=== PATIENT | female | born 1955 | race Caucasian/White ===

== ENCOUNTER 2017-09-30 14:07 | Outpatient (CLI) | payer OTHER | END 2017-09-30 14:08 | disposition home or self-care (01) | LOC: BICRAD 14:07 | PROVIDERS: ATTEND Internal Medicine | DX: M79.671 Pain in right foot (principal); M79.672 Pain in left foot; M19.072 Primary osteoarthritis, left ankle and foot ==

== ENCOUNTER 2018-03-14 07:58 | Outpatient (CLI) | payer OTHER | END 2018-03-14 07:59 | disposition home or self-care (01) | LOC: BICMAMMO 07:58 → MERGE 08:45 | PROVIDERS: ATTEND Internal Medicine | DX: Z12.31 Encounter for screening mammogram for malignant neoplasm of breast (principal); N64.89 Other specified disorders of breast; Z85.3 Personal history of malignant neoplasm of breast | CPT/HCPCS: 77063; 77067 ==

== ENCOUNTER 2018-04-04 08:29 | Outpatient (CLI) | payer OTHER ==
--- NOTE | 2018-04-04 10:09 | ULT ---
RIGHT BREAST ULTRASOUND: Date: 04/04/18 HISTORY: Abnormal mammogram of 03/14/18. FINDINGS: Correlation is made with the recent mammographic views of same date. Sonographic evaluation of the right breast demonstrates a 7.0 x 5.0 x 5.0 mm slightly irregular, carmelita d appearing, nonshadowing mass at the 2 o'clock position, 1.0 cm from the nipple, corresponding to th e finding on the mammogram. IMPRESSION: BIRADS Category 4 - Suspicious abnormality. Recommend ultrasound guided biopsy. Discussed in person with the patient at 0900 hours. CODE CR. POS: OFF
== END 2018-04-04 08:30 | disposition home or self-care (01) ==
LOC: BICMAMMO 08:29
PROVIDERS: ATTEND Internal Medicine
DX: R92.2 Inconclusive mammogram (principal); Z85.3 Personal history of malignant neoplasm of breast
CPT/HCPCS: G0279

== ENCOUNTER → 2018-04-06 | Day surgery (SDC) | payer OTHER ==
--- NOTE | 2018-04-06 16:57 | ULT ---
PREPROCEDURE DIAGNOSIS: Right breast 2 o'clock subareolar mass. POSTPROCEDURE DIAGNOSIS: Right breast 2 o'clock subareolar mass. PROCEDURE: Ultrasound guided core biopsy of right breast mass. PATIENT ACCOUNTS COORDINATOR: El Howard M.D. COMPARISON: None. ANESTHESIA: 10 mL buffered 1% lidocaine. SPECIMEN: Five 14 gauge core biopsy specimens of right breast 2 o'clock mass. TECHNIQUE: Prior to the procedure, the risks, and benefits of an ultrasound guided right breast mass biopsy were explained with the patient and she consented for the procedure. The lesion in the left subareolar re gion of the right breast was again identified slightly towards the 2 o'clock position. The right joce st was then prepped and draped in the usual sterile fashion. The approach from lateral was performed. Lidocaine was used to anesthetize the skin and soft tissues down to and surrounding the mass. A smal l skin incision was made allowing for passage of the 13 gauge guiding trocar. This was then placed us ing ultrasound guidance into the region of the mass. A 14 gauge biopsy device was then placed five separate times through the guiding trocar and five sepa rate biopsies were obtained of the right breast mass. These specimens were placed in formalin. A biopsy clip has been placed at the biopsy site. The guiding trocar and biopsy clip device were mary salena. Pressure was held to maintain hemostasis. A postprocedure mammogram was performed showing a biopsy clip at the biopsy site in the subareolar re gion with a small amount of post biopsy hematoma. The asymmetry seen on mammogram could not be apprec iated postprocedure given the small amount of hematoma and given the small size of the lesion. IMPRESSION: Status post ultrasound guided right breast biopsy. POS: [facility]
== END ==
LOC: BICULT 13:19
PROVIDERS: ATTEND Internal Medicine
PROC: 0HBT3ZX Excision of Right Breast, Percutaneous Approach, Diagnostic (ICD-10-PCS; principal; 2018-04-06)
DX: C50.211 Malignant neoplasm of upper-inner quadrant of right female breast (principal)
CPT/HCPCS: 19083; 88305; 88341; 88342

== ENCOUNTER 2018-04-28 09:13 | Outpatient (CLI) | payer OTHER ==
--- NOTE | 2018-04-28 11:04 | RAD ---
TWO VIEWS CHEST: Comparison: None. History: Preoperative radiograph. FINDINGS: Two views of the chest show normal sized cardiomediastinal silhouette. There is no evidence of consol idation, mass, or pleural effusion. Degenerative changes are seen in the spine. IMPRESSION: No evidence of acute cardiopulmonary disease. POS: [facility]
[2018-04-28 11:06] LABS: ALT (SGPT) 63 U/L (8-55); AST (SGOT) 38 U/L (5-34); Albumin 4.1 g/dL (3.5-5.0); Alkaline Phosphatase 87 U/L (40-150); Bilirubin, Direct 0.1 mg/dL (0.1-0.3); Bilirubin, Total 0.3 mg/dL (0.2-1.2); Protein, Total 7.4 g/dL (6.0-8.3)
--- NOTE | 2018-04-28 17:09 | EKG ---
Test Reason : Blood Pressure : / mmHG Vent. Rate : 081 BPM Atrial Rate : 081 BPM P-R Int : 162 ms QRS Dur : 098 ms QT Int : 380 ms P-R-T Axes : 051 055 059 degrees QTc Int : 441 ms Normal sinus rhythm Cannot rule out Anterior infarct , age undetermined Abnormal ECG No previous ECGs available Confirmed by DR. Brooks MARY (3) on 04/28/2018 5:08:42 PM Referred By: NICKO Confirmed By:DR. Brooks MARY
== END 2018-04-28 09:14 | disposition home or self-care (01) ==
LOC: LABBT 09:13
PROVIDERS: ATTEND Surgery
DX: Z01.818 Encounter for other preprocedural examination (principal); C50.911 Malignant neoplasm of unspecified site of right female breast
CPT/HCPCS: 71046; 80076; 93005; 93010

== ENCOUNTER 2018-05-11 07:22 | Inpatient (IN) | payer OTHER ==
[2018-04-28 09:18] VITALS: BMI 35.7
[2018-05-11] MEDS ORDERED: Isosulfan Blue 50 MG/5 ML VIAL ONE (09:01)
[2018-05-11] MEDS ORDERED: Bupivacaine HCl 0.25%/Epi 0.0005/PF 10 ML VIAL FS ONE ×2 (09:01)
[2018-05-11] MEDS ORDERED: Bupivacaine HCl 0.5%/Epinephrine 1:200,000/PF 30 ml Vial ONE ×2 (09:01→19:31)
[2018-05-11] MEDS ORDERED: Fentanyl 250 MCG/5 ML VIAL ONE (09:05)
[2018-05-11] MEDS ORDERED: Midazolam HCl 2 mg/2 ml Vial ONE (09:31)
[2018-05-11] MEDS ORDERED: Famotidine/PF 20 mg/2ml Vial ONE (09:32)
[2018-05-11] MEDS ORDERED: Ketorolac Tromethamine 30 MG/ML VIAL ONE (09:32)
[2018-05-11] MEDS ORDERED: CEFAZOLIN 2 GM/50 ML BAG ONE ×2 (09:33→19:43)
--- NOTE | 2018-05-11 10:37 | NM ---
RIGHT BREAST LYMPHOSCINTIGRAPHY: HISTORY: Invasive ductal carcinoma of the right breast. RADIOPHARMACEUTICAL: Technetium 99m filtered sulfur colloid 427 millicuries, injected in the right periareolar region, in divided doses. FINDINGS: Preliminary measuring of the head, chest, and axillae was performed. There is visualization of lymph nodes in the right axilla and in the right internal mammary chains. IMPRESSION: [place] lymph nodes in the right axilla and internal mammary lymph nodes. POS: [facility]
[2018-05-11] MEDS ORDERED: HYDROcodone/Acetaminophen 10/325 mg Tablet PO PRN (12:38)
[2018-05-11] MEDS ORDERED: Dextrose 50% Abboject 50 ML SYRINGE SLOW IVP PRN (12:38)
[2018-05-11] MEDS ORDERED: Dextrose 5% in Water 1,000 ML IV PRN (12:38)
[2018-05-11] MEDS ORDERED: Morphine 4 MG/ML VIAL SLOW IVP PRN (12:38)
[2018-05-11] MEDS ORDERED: Promethazine HCl 25 MG/ML VIAL IM PRN ×2 (12:38→21:48)
[2018-05-11] MEDS ORDERED: hydrALAZINE 20 MG/ML VIAL SLOW IVP PRN (12:38)
[2018-05-11] MEDS ORDERED: D5 1/2 NS w/20 mEq KCL 1,000 ML IV SCH (12:45)
[2018-05-11] MEDS ORDERED: PHENYLEPHRINE-NS 100 MCG/ML 10 ML SYRINGE ONE ×2 (12:55→12:56)
[2018-05-11] MEDS ORDERED: Glycopyrrolate 0.2 MG/ML 5 ML SYRINGE ONE ×2 (12:55→12:56)
[2018-05-11] MEDS ORDERED: Dexamethasone 20 MG/5 ML VIAL ONE (12:55)
[2018-05-11] MEDS ORDERED: Ondansetron PF 4 MG/2 ML Vial ONE ×3 (12:55→22:53)
[2018-05-11] MEDS ORDERED: PROPOFOL 200 MG/20 ML VIAL ONE ×2 (12:55→12:56)
[2018-05-11] MEDS ORDERED: Rocuronium Bromide 10 MG/ML (10ML VIAL) ONE (12:55)
[2018-05-11] MEDS ORDERED: Lidocaine 1% PF 5 ML VIAL ONE ×2 (12:55→12:56)
[2018-05-11] MEDS ORDERED: Succinylcholine Chloride 20 MG/ML 10 ml SYRINGE FS ONE (12:56)
[2018-05-11] MEDS ORDERED: Fentanyl 100 MCG/2 ML VIAL ONE ×2 (13:50→19:21)
[2018-05-11] MEDS ORDERED: Promethazine HCl 25 MG/ML VIAL ONE (13:50)
--- NOTE | 2018-05-11 14:24 | RAD ---
MEDIPORT PLACEMENT: COMPARISON: Chest radiograph from 04/28/2018. FINDINGS: The port catheter is in place with the tip at the mid to inferior SVC. The lungs are well aerated. No pneumothorax is appreciated. The lungs are mildly hypoinflated. IMPRESSION: Uncomplicated placement of port catheter. POS: [facility]
[2018-05-11 17:01] LABS: Hemoglobin 12.6 g/dL (12.0-16.0)
[2018-05-11] MEDS ORDERED: Lidocaine 2% Jelly 5 ML TUBE ONE (19:21)
[2018-05-11] MEDS: Sodium Chloride 0.9% 1,000 ML IV SCH ×3 (19:51→22:29)
[2018-05-11] MEDS ORDERED: Phenylephrine HCL 10 MG/ML VIAL ONE (20:27)
[2018-05-11] MEDS ORDERED: Famotidine 20 MG TAB PO SCH (21:00)
[2018-05-11] MEDS ORDERED: Promethazine HCl 25 MG/ML VIAL SLOW IVP PRN (21:48)
[2018-05-11] MEDS ORDERED: Ondansetron HCl/PF 4 MG/2 ML Vial IVP PRN (21:48)
[2018-05-11 22:06] LABS: Hemoglobin 10.8 g/dL (12.0-16.0)
[2018-05-11] MEDS ORDERED: Albumin 25% 25 GM/100 ML BOT IVPB PRN (22:17)
[2018-05-11] MEDS ORDERED: Albumin 25% 25 GM/100 ML BOT IVPB SCH (22:30)
[2018-05-12] MEDS: Acetaminophen 325 MG TAB PO PRN (00:45)
[2018-05-12] MEDS: Sodium Chloride 0.9% 1,000 ML IV SCH ×4 (00:47→20:21)
[2018-05-12] MEDS ORDERED: Famotidine 20 MG TAB PO SCH (02:45)
--- NOTE | 2018-05-12 03:25 | OP ---
DATE OF PROCEDURE: 05/11/2018 PREOPERATIVE DIAGNOSIS: Postoperative bleeding. PROCEDURE PERFORMED: Wound exploration, evacuation of hematoma and hemostasis. INDICATIONS: This is a 62-year-old female, who earlier today had a right total mastectomy with axillary dissection. Postoperatively, she had excessive bloody drainage from the JAZMIN, became hypotensive, and was taken back. FINDINGS: Probably about 1200 total mL including the drainage that had come out plus the hematoma, there were multiple areas of muscle oozing. DESCRIPTION OF PROCEDURE: After informed consent was obtained, the patient was taken to the operating room, given general endotracheal anesthesia, placed in supine position. Her chest was prepped and draped in the usual fashion. The old incision was opened using scissors and the clot evacuated. There was not one specific spot. Though the cavity was thoroughly irrigated with saline, there were multiple small bleeders, which were cauterized. There was one potential vessel and that was ligated with 3-0 Vicryl [id number], just continued to carefully irrigate and cauterize, and then eventually I used 3 Cole powders to completely cover the surface with the Cole powder to aid in hemostasis. Then, two new 19-[place] JPs were placed, brought out through the same stab wounds. The subcu was reapproximated with interrupted 3-0 Vicryl. Then, the skin closed with a running subcuticular 4-0 Rapide. Steri-Strips applied. Sterile bandage applied. The patient tolerated the procedure well, but remained somewhat hypotensive with a pressure in the low 100s. Job ID: [id number]
[2018-05-12 05:19] LABS: #Lymphocytes 2.1 thou/uL (1.20-3.40); #Monocytes 0.9 thou/uL (0.11-0.59); #Neutrophils 6.9 thou/uL (1.40-6.50); %Basophils 0.1 % (0.0-1.0); %Eosinophils 0.3 % (0.0-10.0); %Monocytes 9.1 % (0.0-10.0); %Neutrophils 69.4 % (42.0-75.0); Hemoglobin 8.1 g/dL (12.0-16.0); Mean Corpuscular HGB CONC 34.1 g/dL (32.0-36.0); Mean Corpuscular Hemoglobin 30.8 pg (27.0-31.0); Mean Corpuscular Volume 90.5 fL (78.0-98.0); Mean Platelet Volume 7.9 fL (7.4-10.4); Platelet Count 140 thou/uL (130-400); RBC Distribution Width 11.8 % (11.5-14.5); Red Blood Cell (RBC) Count 2.63 mill/uL (4.20-5.40); White Blood Cell (WBC) Count 9.9 thou/uL (4.8-10.8)
[2018-05-12 06:05] LABS: Anion Gap 12 mmol/L (10-20); BUN (Urea Nitrogen) 11 mg/dL (9.8-20.1); Calc. Creatinine Clearance 140 mL/min (70-130); Calcium 8.2 mg/dL (7.8-10.44); Carbon Dioxide 23 mmol/L (22-29); Chloride 107 mmol/L (98-107); Estimated GFR-MDRD Greater than 90; Glucose 122 mg/dL (70-105); Potassium 4.2 mmol/L (3.5-5.1); Sodium 138 mmol/L (136-145)
[2018-05-12] MEDS ORDERED: Mag-Al 1200 mg/1200 mg/30 ML UDCUP PO PRN (06:51)
[2018-05-12] MEDS: Pantoprazole 40 MG VIAL IVP SCH (07:56)
[2018-05-12] MEDS: HYDROcodone/Acetaminophen 10/325 mg Tablet PO PRN ×4 (07:56→22:15)
[2018-05-12] MEDS: Famotidine 20 MG TAB PO SCH ×2 (07:56→20:20)
--- NOTE | 2018-05-12 08:53 | OP ---
DATE OF PROCEDURE: 05/11/2018 PREOPERATIVE DIAGNOSIS: Recurrent right breast cancer. PROCEDURES PERFORMED: MediPort placement, right total mastectomy, sentinel lymph node biopsy, and axillary dissection. INDICATIONS: This is a 62-year-old female, who had had a previous right breast cancer treated with lumpectomy and radiation therapy, who developed a second cancer. FINDINGS: The MediPort was placed in the left subclavian vein. Two of three sentinel nodes were positive. There were more palpable nodes in the axilla. DESCRIPTION OF PROCEDURE: After informed consent was obtained, the patient was taken to the operating room and given general endotracheal anesthesia, placed in the Trendelenburg position. Her chest and neck were prepped and draped in usual fashion, local anesthesia infiltrated subcutaneously and deep, an introducer needle was inserted in left subclavian with good backflow of venous blood. A J-wire threaded easily. The fluoroscopy was then used to document that the wire was in the superior vena cava. The skin and subcu anesthetized with local anesthesia. A transverse left chest wall incision was performed. Subcu divided sharply down to the fascia and the tunneling device used to connect the 2 incisions. The catheter was then brought through the tunnel, connected to the MediPort and the MediPort secured to the pectoral fascia with interrupted 2-0 Prolene suture. Then, the MediPort catheter was cut to size. The peel-away introducer inserted over the wire. The wire was removed. The catheter inserted through the peel-away introducer and the peel-away introducer removed. Again, fluoroscopy used showed good placement of the MediPort. The port was then accessed with a Dahl needle. Good backflow of venous blood, flushed with heparinized saline. Hemostasis assured. Subcu reapproximated with interrupted 3-0 Vicryl. Skin closed with a running subcuticular 4-0 Rapide. Dermabond applied. Then, her right breast and axilla were prepped and draped in usual fashion and the Neoprobe was used. A baseline was performed with counts around 8, transcutaneous counts of 70 were found, high in the axilla. A transverse axillary incision was performed. Subcu divided sharply and a cluster of lymph nodes were found, that was hot with in-vivo counts of 400. These were dissected out and sent to Pathology for touch prep. While waiting on the touch prep, the skin incision was extended to become an elliptical incision to include the nipple areolar complex. Then, the plane was developed utilizing the plasma blade between subcutaneous tissue and mammary tissue to the level of the clavicle superior of the sternum medially, the rectus inferiorly, and the latissimus laterally, then was removed off the pectoralis muscle to include its fascia. This was marked with a suture superior and sent to Pathology for further analysis. By now, the lymph nodes came back 2 of 3 positive. So, I re-examined the axilla and there were palpable nodes, so I elected to go and remove those. The nodes were dissected out using blunt sharp dissection as well as the plasma blade and suture ligature of 3-0 Vicryl suture. Hemostasis assured. The node package was sent separately. Hemostasis assured. The wound was thoroughly irrigated with saline. Two drains were placed through separate stab wounds, 1 to the axilla and 1 under the inferior flap. Subcu was reapproximated with interrupted 3-0 Vicryl. The skin closed with a running subcuticular 4-0 Rapide. Steri-Strips were applied. Sterile bandage applied. The patient tolerated the procedure well, transferred to Recovery in good condition. Sponge and needle count verified correct x2. Job ID: [id number]
[2018-05-12 10:25] LABS: Hemoglobin 7.7 g/dL (12.0-16.0)
[2018-05-12] MEDS: Ondansetron PF 4 MG/2 ML Vial IVP PRN ×2 (13:17→17:32)
[2018-05-12] MEDS: Morphine 4 MG/ML VIAL SLOW IVP PRN ×3 (13:25→20:25)
[2018-05-12 16:45] LABS: Hemoglobin 7.8 g/dL (12.0-16.0)
[2018-05-12] MEDS ORDERED: HYDROcodone/Acetaminophen 10/325 mg Tablet PO PRN (16:50)
[2018-05-12] MEDS: Ketorolac Tromethamine 30 MG/ML VIAL IVP PRN (17:33)
[2018-05-12 22:24] LABS: Hemoglobin 8.9 g/dL (12.0-16.0)
[2018-05-13] MEDS: Morphine 4 MG/ML VIAL SLOW IVP PRN (02:14)
[2018-05-13] MEDS: HYDROcodone/Acetaminophen 10/325 mg Tablet PO PRN (05:39)
[2018-05-13] MEDS: Sodium Chloride 0.9% 1,000 ML IV SCH ×5 (05:43→22:49)
[2018-05-13] MEDS: Pantoprazole 40 MG VIAL IVP SCH (07:41)
[2018-05-13] MEDS: Famotidine 20 MG TAB PO SCH ×2 (07:42→20:35)
[2018-05-13] MEDS: Ketorolac Tromethamine 30 MG/ML VIAL IVP PRN ×3 (07:42→18:31)
--- NOTE | 2018-05-13 09:50 | PRG ---
DATE OF SERVICE: 05/13/2018 SUBJECTIVE: The patient reports feeling better today but still she is having a lot of nausea and just feels good. OBJECTIVE: VITAL SIGNS: She is afebrile. Temperature is 98.2, her pulse is 98, and blood pressure 122/71. GENERAL: Color looks better. She just looks weak and tired. The dressing is dry. There is no obvious soft tissue swelling or hematoma present. Drain output is 130 from JAZMIN 2 and 45 from JAZMIN 1. ASSESSMENT: Right breast cancer with postoperative bleed, doing better. PLAN: Check CBC today. We will try and get her off her narcotics. We will try and switch her to Ofirmev and Toradol. Advance her diet to full liquids. Decrease her IV rate. Job ID: [id number]
[2018-05-13 10:21] LABS: #Eosinphils 0.1 thou/uL (0.0-0.7); #Lymphocytes 3.1 thou/uL (1.20-3.40); #Monocytes 0.8 thou/uL (0.11-0.59); %Basophils 0.4 % (0.0-1.0); %Lymphocytes 30.6 % (21.0-51.0); %Monocytes 7.7 % (0.0-10.0); %Neutrophils 60.3 % (42.0-75.0); Hemoglobin 8.7 g/dL (12.0-16.0); Mean Corpuscular HGB CONC 33.7 g/dL (32.0-36.0); Mean Corpuscular Hemoglobin 29.9 pg (27.0-31.0); Mean Corpuscular Volume 88.6 fL (78.0-98.0); Mean Platelet Volume 7.7 fL (7.4-10.4); Platelet Count 148 thou/uL (130-400); RBC Distribution Width 12.1 % (11.5-14.5); Red Blood Cell (RBC) Count 2.91 mill/uL (4.20-5.40)
[2018-05-13] MEDS: Ondansetron PF 4 MG/2 ML Vial IVP PRN ×2 (10:32→16:26)
[2018-05-13] MEDS: Acetaminophen 1,000 MG in Premix Bag 1 BAG IVPB PRN ×3 (10:37→21:45)
[2018-05-14] MEDS: Ketorolac Tromethamine 30 MG/ML VIAL IVP PRN (00:47)
[2018-05-14] MEDS: HYDROcodone/Acetaminophen 10/325 mg Tablet PO PRN ×2 (00:55→10:41)
[2018-05-14] MEDS: Sodium Chloride 0.9% 1,000 ML IV SCH ×3 (06:12→09:03)
[2018-05-14] MEDS: Acetaminophen 325 MG TAB PO PRN (06:31)
[2018-05-14] MEDS: Famotidine 20 MG TAB PO SCH (08:28)
[2018-05-14] MEDS: Pantoprazole 40 MG VIAL IVP SCH (09:02)
[2018-05-14 12:05] VITALS: BP 109/71; TEMP 98.3
--- NOTE | 2018-05-14 14:46 | DIS ---
DATE OF ADMISSION: 05/11/2018 DATE OF DISCHARGE: 05/14/2018 FINAL DIAGNOSES: 1. Right breast cancer. 2. Postoperative bleeding. HISTORY: Ms. Burk is a 62-year-old woman with right breast cancer. She had previously undergone lumpectomy and radiation, but developed a recurrent cancer in the same breast, so she underwent mastectomy by Dr. Rodriguez. Postoperatively, she had issues with bleeding and had to go back to the operating room for this, but the bleeding was able to be controlled. She was transfused 1 unit and admitted for observation and had no episodes of recurrent bleeding. The patient's pain has been steadily improving as has her mobility. Her family has been trained in the use of the JAZMIN drain and how to empty it and place it back to suction and keep the drain log. She is going to be discharged home today and has instructions to call Dr. Rodriguez's office next week to arrange followup. Dr. Rodriguez had already given her prescriptions for [place] and Zofran and she was given instructions on shoulder exercises to do. Job ID: [id number]
--- NOTE | 2018-05-18 11:42 | PRG ---
DATE OF SERVICE: 05/12/2018 SUBJECTIVE: The patient is feeling a little bit better this morning, but she had quite a bit of reflux and heartburn, this morning it was severe. After Protonix and some Maalox, she is better. She still feels a little bit lightheaded when she tries to sit up, but her pain is well controlled. OBJECTIVE: VITAL SIGNS: Her temperature is 98.1, pulse 108, and blood pressure 115/66. GENERAL: She looks pale, but she is awake and alert. LUNGS: Clear. The chest wall does not appear to be swollen. Drain output, JP1 of 30 and JP2 of 160. LABORATORY DATA: Her white count is 9.9, H and H of 8.1 and 23.8, and platelet count 140. ASSESSMENT: Postoperative bleed fairly diffuse, possibly related to previous radiation to the chest. PLAN: Plan is to allow her to have some clear liquids. Continue to follow H and H. Possible transfusion if drop below 7. Job ID: [id number]
== END 2018-05-14 13:03 | disposition home or self-care (01) | DRG 581 ==
LOC: SDC 07:22 → SURG A 12:38
PROVIDERS: ADMIT Surgery; ATTEND Surgery
PROC: 0JH63WZ Insertion of Totally Implantable Vascular Access Device into Chest Subcutaneous Tissue and Fascia, Percutaneous Approach (ICD-10-PCS; principal; 2018-05-11)
PROC: 07B50ZX Excision of Right Axillary Lymphatic, Open Approach, Diagnostic (ICD-10-PCS; 2018-05-11)
PROC: 0HTT0ZZ Resection of Right Breast, Open Approach (ICD-10-PCS; 2018-05-11)
PROC: 0W380ZZ Control Bleeding in Chest Wall, Open Approach (ICD-10-PCS; 2018-05-11)
PROC: C71L1ZZ Planar Nuclear Medicine Imaging of Upper Chest Lymphatics using Technetium 99m (Tc-99m) (ICD-10-PCS; 2018-05-11)
DX: C50.911 Malignant neoplasm of unspecified site of right female breast (principal)
CPT/HCPCS: 36415; 36430; 71045; 78195; 80048; 85014; 85018; 85025; 86850; 86900; 86901; 88307; 88309; 88333; 88334; 88342; A9541; C1788; C9113; J0131; J0670; J1100; J1642; J1885; J2001; J2250; J2270; J2370; J2405; J2550; J2704; J3010; P9016; P9047; Q9968; S0028

== ENCOUNTER 2018-06-06 14:11 | Outpatient (CLI) | payer OTHER | END 2018-06-06 14:12 | disposition home or self-care (01) | LOC: ULT 14:11 | PROVIDERS: ATTEND Internal Medicine Hematology & Oncology | DX: Z51.11 Encounter for antineoplastic chemotherapy (principal); C50.111 Malignant neoplasm of central portion of right female breast; I08.1 Rheumatic disorders of both mitral and tricuspid valves; Z79.899 Other long term (current) drug therapy | CPT/HCPCS: 93306 ==

== ENCOUNTER 2018-06-24 17:47 | Inpatient (IN) | payer OTHER, SELFPAY ==
--- NOTE | 2018-06-24 19:45 | RAD ---
CHEST ONE VIEW 06/24/18 INDICATION: Fever. COMPARISON: Prior dated 05/11/18. FINDINGS: Left chest wall port is stable. Lungs are clear. Heart size is normal. No acute osseous abnormality is evident. IMPRESSION: No acute cardiopulmonary abnormality. POS: [facility]
[2018-06-24 20:11] LABS: Hemoglobin 13.5 g/dL (12.0-16.0); Mean Corpuscular HGB CONC 33.7 g/dL (32.0-36.0); Mean Corpuscular Hemoglobin 29.5 pg (27.0-31.0); Mean Corpuscular Volume 87.5 fL (78.0-98.0); Mean Platelet Volume 8.2 fL (7.4-10.4); Platelet Count 183 thou/uL (130-400); RBC Distribution Width 11.8 % (11.5-14.5); Red Blood Cell (RBC) Count 4.56 mill/uL (4.20-5.40); White Blood Cell (WBC) Count 1.6 thou/uL (4.8-10.8)
[2018-06-24 20:32] LABS: ALT (SGPT) 84 U/L (8-55); AST (SGOT) 22 U/L (5-34); Alkaline Phosphatase 92 U/L (40-150); Anion Gap 15 mmol/L (10-20); BUN (Urea Nitrogen) 11 mg/dL (9.8-20.1); Bilirubin, Total 0.9 mg/dL (0.2-1.2); Calc. Creatinine Clearance 0 mL/min (70-130); Calcium 9.4 mg/dL (7.8-10.44); Carbon Dioxide 28 mmol/L (22-29); Chloride 91 mmol/L (98-107); Estimated GFR-MDRD 76; Globulin 2.9 g/dL (2.4-3.5); Glucose 133 mg/dL (70-105); Potassium 3.8 mmol/L (3.5-5.1); Protein, Total 6.9 g/dL (6.0-8.3); Sodium 130 mmol/L (136-145)
[2018-06-24] MEDS ORDERED: Acetaminophen 500 MG TAB ONE (20:33)
[2018-06-24] MEDS ORDERED: Cefepime 2 GM VIAL ONE (20:33)
[2018-06-24 20:39] LABS: Lymphocytes 76 % (21-51); MDiff Complete? YES; Monocytes 14 % (0-10); Neutrophil 8 % (42-75); Platelet Morphology Comment Appears Adequate; RBC Morphology Normal; Reactive Lymphocytes 2 % (0-10)
[2018-06-24 22:35] LABS: Bilirubin Small (Negative); Blood, Urine Negative (Negative); Clarity CLEAR (Clear); Glucose, Urine (Dipstick) Negative (Negative); Leukocyte Trace (Negative); Nitrite Negative (Negative); Protein, Urine (Dipstick) 30 mg/dL (Neg-Trace); Specific Gravity, Urine 1.023 (1.002-1.036); Urobilinogen 0.2 mg/dL (0.2-1.0)
[2018-06-24 22:37] LABS: Bacteria/HPF None Seen HPF (None Seen); Hyaline Casts/LPF 4-6 HYALINE CAST LPF (0-3 Hyaline); Pathc Cast-AUWi Flag 0.67 (0-2.49); Squamous Epithelial 0-3 HPF (0-3)
[2018-06-24 22:54] LABS: Renal Epithelial 0-3 HPF (0-3)
[2018-06-25] MEDS ORDERED: Ondansetron ODT 4 MG TAB SL PRN (00:43)
[2018-06-25] MEDS ORDERED: Ondansetron PF 4 MG/2 ML Vial IVP PRN (00:43)
[2018-06-25] MEDS ORDERED: Acetaminophen 325 MG TAB PO PRN (00:43)
[2018-06-25 01:41] VITALS: BMI 33.2
[2018-06-25] MEDS ORDERED: Ondansetron ODT 4 MG TAB PO PRN (07:34)
[2018-06-25] MEDS ORDERED: Loperamide HCl 2 MG CAP PO PRN ×2 (07:45)
[2018-06-25] MEDS: Multivitamin W/ Minerals 1 TAB PO SCH (08:21)
[2018-06-25] MEDS: Docusate 100 MG CAP PO SCH (08:22)
[2018-06-25] MEDS: Famotidine 20 MG TAB PO SCH ×2 (08:22→20:11)
--- NOTE | 2018-06-25 08:27 | HP ---
CHIEF COMPLAINT: Fever. HISTORY OF PRESENT ILLNESS: This patient is a 62-year-old female, who has a history of recurrence of breast cancer, who is status post mastectomy and has started on chemotherapy. The patient was seen in the Cancer Center yesterday and was told to notify them and she developed a temperature over 100.5 as she was found to be neutropenic in the evening. The patient did in fact developed a temperature of 100.7 and presented to the emergency department, where her temperature increased to 102.5. The patient has reported that she has had some diarrhea over the past week, but otherwise that has resolved and she has had none since yesterday. Other than that, she has had no specific indications of infection. She denies any urinary tract symptoms, respiratory symptoms, or overt evidence of skin infections. She actually feels significantly better at the moment. She did receive vancomycin and cefepime in the emergency department. REVIEW OF SYSTEMS: The patient had the above-mentioned diarrhea. She also has a very poor appetite and poor p.o. intake. She also reports that she had significant pain in her hips following chemotherapy initially, but that has now completely resolved. PAST MEDICAL HISTORY: Breast cancer, right breast. Initially had lumpectomy, radiation, and subsequently has had recurrence. She has had restless legs syndrome. She is prediabetic. She has some allergy symptoms as well. PAST SURGICAL HISTORY: , right breast lumpectomy and right mastectomy. FAMILY HISTORY: Father is . Mother is alive with diabetes. She has siblings with diabetes. SOCIAL HISTORY: The patient is . She is nonsmoker, nondrinker, and nondrug user. She is full code and her surrogate decision maker would be her or one of her daughters. ALLERGIES: NONE. CURRENT MEDICATIONS: 1. Ranitidine 150 mg p.o. at bedtime. 2. Zofran ODT 4 mg q.4 hours p.r.n. 3. Aleve 440 mg b.i.d. p.r.n. 4. Multivitamin one p.o. daily. 5. Singulair 10 mg at bedtime. 6. Ibuprofen p.r.n. 7. Hydrocodone/Tylenol 5/325 one to two q.6 hours p.r.n. 8. Gabapentin 600 mg at bedtime. 9. Fexofenadine 180 mg daily. 10. Docusate 100 mg daily. 11. Cranberry tablet one daily. 12. Vitamin D 2000 units daily. 13. Calcium with vitamin D one p.o. daily. 14. Acetaminophen p.r.n. PHYSICAL EXAMINATION: VITAL SIGNS: In the emergency department, T-max 102.5. Currently, temperature 97.6, pulse 91, respirations 16, O2 sat 94% on room air, and blood pressure is 147/67. GENERAL APPEARANCE: Age-appropriate female, in no distress. She is awake, alert, oriented, pleasant, cooperative, in no distress. HEENT: PERRL. No acute lesions. She has no evidence of any dental inflammation. NECK: Supple and symmetric with no lymphadenopathy, JVD, or bruits. HEART: Regular rate and rhythm without murmurs, gallops, or rubs. LUNGS: Clear to auscultation bilaterally with good chest wall expansion and air exchange. ABDOMEN: Soft, nontender, and nondistended. Positive bowel sounds. No masses. No organomegaly. EXTREMITIES: Have no cyanosis, clubbing, or edema. SKIN: Warm and dry with no evidence of lesions. NEUROLOGIC: The patient appears to be fully intact with no focal deficits. PSYCH: The patient has appropriate affect and behavior. LABORATORY DATA: White count 1.6, hemoglobin 13.5, and platelets 183. She has 8% neutrophils, 76% lymphocytes, and 14% monocytes. Sodium 130, potassium 3.8, chloride 91, CO2 is 28, BUN 11, creatinine 0.77, glucose 133, AST 22, and ALT is 84. Urinalysis shows small bilirubin, trace leukocyte esterase, 4 to 6 white cells, and 4 to 6 hyaline cast. Flu screen is negative. Chest x-ray is negative. IMPRESSION AND PLAN: 1. Neutropenic fever. No clear identifiable source, likely due to gut hoang, but we will cover with vancomycin and cefepime. Continue to follow up cultures. There is minimal evidence of possible urinary tract infection, but again we will follow up cultures. We will likely need to be here until her counts recover and the fevers resolved. 2. Hyponatremia, appears to be relatively mild. The patient is not eating and drinking in great deal. We will continue to follow. May need to give some IV fluids, although she does not appear to be dehydrated at the moment. 3. Slight elevation of ALT, likely a chemotherapy related. 4. Breast cancer. We will consult Oncology for any further recommendations. 5. History of allergies. Continue with the home medication regimen. Job ID: [id number]
[2018-06-25] MEDS ORDERED: Vancomycin HCl 1 GM in Premix Bag 1 BAG IVPB SCH (09:00)
[2018-06-25] MEDS: Calcium Citrate 950 MG TAB PO SCH (09:08)
[2018-06-25] MEDS: Loratadine 10 MG TAB PO SCH (09:08)
[2018-06-25] MEDS ORDERED: VANCOMYCIN IVPB PRN (10:00)
[2018-06-25] MEDS: Cefepime 1 GM in Sodium Chloride 0.9% 100 ML IVPB SCH ×2 (10:15→20:12)
[2018-06-25] MEDS: Vancomycin HCl 1.5 GM in Sodium Chloride 0.9% 250 ML 300 ML IVPB SCH ×2 (11:14→22:36)
[2018-06-25] MEDS: Gabapentin 300 MG CAP PO SCH (20:12)
[2018-06-25] MEDS: Montelukast Sodium 10 mg Tablet PO SCH (20:12)
[2018-06-26] MEDS: HYDROcodone/Acetaminophen 5/325 mg Tablet PO PRN (01:04)
[2018-06-26 04:58] LABS: Anion Gap 11 mmol/L (10-20); BUN (Urea Nitrogen) 6 mg/dL (9.8-20.1); Calc. Creatinine Clearance 130 mL/min (70-130); Calcium 8.7 mg/dL (7.8-10.44); Carbon Dioxide 27 mmol/L (22-29); Chloride 100 mmol/L (98-107); Estimated GFR-MDRD 88; Glucose 135 mg/dL (70-105); Potassium 3.6 mmol/L (3.5-5.1); Sodium 134 mmol/L (136-145)
[2018-06-26 05:16] LABS: Band 9 % (5-11); Hemoglobin 11.5 g/dL (12.0-16.0); Lymphocytes 68 % (21-51); MDiff Complete? YES; Mean Corpuscular Hemoglobin 29.4 pg (27.0-31.0); Mean Platelet Volume 7.1 fL (7.4-10.4); Monocytes 13 % (0-10); Neutrophil 6 % (42-75); Platelet Count 178 thou/uL (130-400); Platelet Morphology Comment Appears Adequate; RBC Distribution Width 11.7 % (11.5-14.5); RBC Morphology Normal; Reactive Lymphocytes 4 % (0-10); Red Blood Cell (RBC) Count 3.91 mill/uL (4.20-5.40); White Blood Cell (WBC) Count 2.7 thou/uL (4.8-10.8)
[2018-06-26] MEDS: Docusate 100 MG CAP PO SCH (09:17)
[2018-06-26] MEDS: Cefepime 1 GM in Sodium Chloride 0.9% 100 ML IVPB SCH ×2 (09:17→20:54)
[2018-06-26] MEDS: Calcium Citrate 950 MG TAB PO SCH (09:18)
[2018-06-26] MEDS: Loratadine 10 MG TAB PO SCH (09:18)
[2018-06-26] MEDS: Famotidine 20 MG TAB PO SCH ×2 (09:18→20:55)
[2018-06-26] MEDS: Multivitamin W/ Minerals 1 TAB PO SCH (09:18)
[2018-06-26 11:03] LABS: Vancomycin, Trough 10.2 ug/mL
[2018-06-26] MEDS: Vancomycin HCl 1.5 GM in Sodium Chloride 0.9% 250 ML 300 ML IVPB SCH (11:06)
--- NOTE | 2018-06-26 14:42 | PDOC.PN ---
- Subjective Encounter Start Date: 06/26/18 Encounter Start Time: 14:41 Pt seen for followup re; febrile neutropenia. Feels better. - Objective Resuscitation Status - Order Detail: 06/25/18 07:45 Resuscitation Status Routine Resuscitation Status: FULL: Full Resuscitation Discussed with: patient Vital Signs & Weight: Vital Signs (12 hours) Temp Pulse Resp BP Pulse Ox 06/26/18 12:33 97.8 F 83 16 144/73 H 98 06/26/18 08:00 97.9 F 86 16 135/66 95 06/26/18 04:00 98.6 F 85 16 104/56 L 94 L Weight Admit Weight 205 lb 14.588 oz Weight 205 lb 14.588 oz I&O: 06/25/18 06/26/18 06/27/18 05:59 06:59 06:59 Intake Total Balance Result Diagrams: 06/26/18 04:20 06/26/18 04:20 Phys Exam - Physical Examination Constitutional: NAD HEENT: moist MMs, sclera anicteric, oral pharynx no lesions, 2+ tonsils Neck: no nodes, no JVD, supple, full ROM Respiratory: clear to auscultation bilateral Cardiovascular: RRR, no rub S1, S2 Gastrointestinal: soft, non-tender, no distention, positive bowel sounds Neurological: moves all 4 limbs Psychiatric: normal affect, A&O x 3 Dx/Plan (1) Febrile neutropenia Code(s): D70.9 - NEUTROPENIA, UNSPECIFIED; R50.81 - FEVER PRESENTING WITH CONDITIONS CLASSIFIED ELSEWHERE Status: Acute Comment: Improving, continue IV antibiotics as below (2) Hyponatremia Code(s): E87.1 - HYPO-OSMOLALITY AND HYPONATREMIA Status: Acute Comment: sodium improved to 134 (3) Breast cancer Status: Chronic Comment: oncology consulted - Plan * . Review of Systems - Review of Systems Constitutional: negative: fever, chills, sweats, weakness, malaise Respiratory: negative: Cough, Shortness of Breath, SOB with Excertion, Pleuritic Pain, Wheezing Cardiovascular: negative: chest pain, palpitations, orthopnea, paroxysmal nocturnal dyspnea, edema, light headedness Gastrointestinal: negative: Nausea, Vomiting, Abdominal Pain, Diarrhea, Constipation, Melena, Hematochezia Genitourinary: negative: Dysuria, Frequency, Incontinence, Hematuria, Retention - Medications/Allergies Allergies/Adverse Reactions: Allergies Allergy/AdvReac Type Severity Reaction Status Date / Time No Known Allergies Allergy Verified 06/25/18 01:58 Medications: Current Medications Hydrocodone Bitart/Acetaminophen (Dulac 5/325) 1 tab PO Q6H PRN PRN Reason: Pain Last Admin: 06/26/18 01:04 Dose: 1 tab Calcium Citrate (Calcium Citrate) 950 mg PO DAILY [facility] Last Admin: 06/26/18 09:18 Dose: 950 mg Cholecalciferol (Vitamin D3) 2,000 units PO DAILY [facility] Last Admin: 06/26/18 09:18 Dose: 2,000 units Docusate Sodium (Colace) 100 mg PO DAILY [facility] Last Admin: 06/26/18 09:17 Dose: 100 mg Famotidine (Pepcid) 20 mg PO BID [facility] Last Admin: 06/26/18 09:18 Dose: 20 mg Gabapentin (Neurontin) 600 mg PO HS [facility] Last Admin: 06/25/18 20:12 Dose: 600 mg Cefepime HCl 1 gm/ Sodium (Chloride) 100 mls @ 200 mls/hr IVPB Q12HR [facility] Last Admin: 06/26/18 09:17 Dose: 100 mls Vancomycin HCl 1.75 gm/ Sodium (Chloride) 500 mls @ 250 mls/hr IVPB Q12HR [facility] Ibuprofen (Motrin) 600 mg PO Q8H PRN PRN Reason: Pain Iron/Minerals/Multivitamins (Theragran M) 1 tab PO DAILY [facility] Last Admin: 06/26/18 09:18 Dose: 1 tab Loperamide HCl (Imodium) 4 mg PO ONE PRN PRN Reason: Diarrhea/Loose Stools Stop: 06/28/18 07:46 Loperamide HCl (Imodium) 2 mg PO PRN PRN PRN Reason: Diarrhea/Loose Stools Loratadine (Claritin) 10 mg PO DAILY [facility] Last Admin: 06/26/18 09:18 Dose: 10 mg Miscellaneous Medication (Pharmacy To Dose) 0 each IVPB DAILYPRN PRN PRN Reason: VANC/CEFEP Montelukast Sodium (Singulair) 10 mg PO HS [facility] Last Admin: 06/25/18 20:12 Dose: 10 mg Ondansetron HCl (Zofran Odt) 4 mg PO Q4H PRN PRN Reason: Nausea/Vomiting Sodium Chloride (Flush - Normal Saline) 10 ml IVF Q12HR [facility] Last Admin: 06/26/18 09:18 Dose: 10 ml Sodium Chloride (Flush - Normal Saline) 10 ml IVF PRN PRN PRN Reason: Saline Flush Last Admin: 06/26/18 11:07 Dose: 10 ml
[2018-06-26] MEDS: Ibuprofen 600 MG TAB PO PRN ×2 (15:16→21:39)
[2018-06-26] MEDS: Montelukast Sodium 10 mg Tablet PO SCH (20:55)
[2018-06-26] MEDS: Gabapentin 300 MG CAP PO SCH (20:55)
[2018-06-26] MEDS ORDERED: Vancomycin HCl 1.75 GM in Sodium Chloride 0.9% 500 ML IVPB SCH (21:00)
[2018-06-27] MEDS: HYDROcodone/Acetaminophen 5/325 mg Tablet PO PRN ×2 (01:21→08:18)
[2018-06-27 02:09] VITALS: TEMP 97.7
--- NOTE | 2018-06-27 03:52 | CON ---
DATE OF CONSULTATION: 06/25/2018 HISTORY OF PRESENT ILLNESS: This patient is a 62-year-old female with history of right breast cancer in 2008, treated with lumpectomy and radiation. She underwent total mastectomy with sentinel lymph node biopsy on May 11, 2018, for grade 3 invasive poorly-differentiated ductal carcinoma of the right breast. The tumor measured 7 x 5 x 3 mm. One of 3 sentinel lymph nodes were positive and 7 axillary lymph nodes were negative. Breast cancer prognostic profile showed triple-positive disease with HER2 3+ and Ki-67 of 49.9%. The patient received cycle 1 chemotherapy with Taxotere, carboplatin, and Herceptin on 06/16/2018. It appears she was not treated with Neulasta. The patient was admitted on 06/25/2018 with fever to the emergency room where she was found to be neutropenic also. The highest temperature was 102.5 noted in the emergency room. PAST MEDICAL HISTORY: Positive for prediabetes, restless legs syndrome. PAST SURGICAL HISTORY: Includes and right breast surgeries as detailed above. PERSONAL FAMILY AND SOCIAL HISTORY: The patient lives with her . She does not smoke and does not drink. OUTPATIENT MEDICATIONS: 1. Ranitidine 150 mg p.o. at bedtime. 2. Zofran p.r.n. 3. Aleve. 4. Singulair 10 mg at bedtime. 5. Ibuprofen. 6. Hydrocodone with Tylenol. 7. Gabapentin. 8. Fexofenadine. 9. Vitamin D. 10. Calcium. 11. Tylenol. REVIEW OF SYSTEMS: As above. The patient denies of nausea, vomiting, and bone pain. She admits to recent diarrhea, which has resolved per se. Also feels quite fatigues. PHYSICAL EXAMINATION: GENERAL: The patient appears acutely and chronically ill. She appears appropriate for her age. VITAL SIGNS: Temperature 97.7, pulse 95, respirations 18, and blood pressure 144/87. HEENT: Unremarkable. LYMPH NODES: Not palpable in cervical, supraclavicular, axillary, or inguinal area. CHEST: Clear to percussion and auscultation. HEART: Regular rhythm. S1 and S2. ABDOMEN: Soft. EXTREMITIES: Without pedal edema. LABORATORY DATA: CBC; WBC 1.6 thousand, hemoglobin 13.5, and platelet count of 183,000. Differentials with 8% neutrophils, 76% lymphocytes. Chemistry shows a normal BUN and creatinine. ALT slightly elevated at 84. Chest x-ray is negative. ASSESSMENT AND RECOMMENDATIONS: This patient is neutropenic and febrile as a result of chemotherapy for breat cancer. She is on cefepime and vancomycin, which will be continued. A CBC will be monitored daily. With the next cycle of chemotherapy, she will need Neulasta. Job ID: [id number]
[2018-06-27 04:22] LABS: Hemoglobin 11.7 g/dL (12.0-16.0); Hypochromia SLIGHT = 6-15 cells (100X) (0-5/hpf); Lymphocytes 48 % (21-51); MDiff Complete? YES; Mean Corpuscular HGB CONC 32.6 g/dL (32.0-36.0); Mean Corpuscular Hemoglobin 29.2 pg (27.0-31.0); Mean Corpuscular Volume 89.5 fL (78.0-98.0); Mean Platelet Volume 7.1 fL (7.4-10.4); Monocytes 16 % (0-10); Neutrophil 36 % (42-75); Platelet Count 186 thou/uL (130-400); Platelet Morphology Comment Appears Adequate; RBC Distribution Width 11.6 % (11.5-14.5); Red Blood Cell (RBC) Count 4.02 mill/uL (4.20-5.40); White Blood Cell (WBC) Count 3.7 thou/uL (4.8-10.8)
[2018-06-27] MEDS: Multivitamin W/ Minerals 1 TAB PO SCH (08:12)
[2018-06-27] MEDS: Docusate 100 MG CAP PO SCH (08:12)
[2018-06-27] MEDS: Cefepime 1 GM in Sodium Chloride 0.9% 100 ML IVPB SCH (08:12)
[2018-06-27] MEDS: Calcium Citrate 950 MG TAB PO SCH (08:12)
[2018-06-27] MEDS: Loratadine 10 MG TAB PO SCH (08:12)
[2018-06-27] MEDS: Famotidine 20 MG TAB PO SCH (08:12)
--- NOTE | 2018-06-27 08:49 | PDOC.PN ---
- Subjective Encounter Start Date: 06/27/18 Encounter Start Time: 09:35 Subjective: Patient feeling better. No more fever. Eating well. Some pain and swelling -: from left antecubital fossa IV now d/c'd. Had U/S to make sure no DVT. - Objective Resuscitation Status - Order Detail: 06/25/18 07:45 Resuscitation Status Routine Resuscitation Status: FULL: Full Resuscitation Discussed with: patient MAR Reviewed: Yes Vital Signs & Weight: Vital Signs (12 hours) Temp Pulse Resp BP Pulse Ox 06/27/18 01:00 97.7 F 77 16 144/56 H 96 Weight Admit Weight 205 lb 14.588 oz Weight 205 lb 14.588 oz I&O: 06/26/18 06/27/18 06/28/18 06:59 06:59 06:59 Intake Total 240 Balance 240 Result Diagrams: 06/27/18 03:54 06/26/18 04:20 Phys Exam - Physical Examination Constitutional: NAD HEENT: moist MMs Respiratory: no wheezing, no rales, no rhonchi, clear to auscultation bilateral Cardiovascular: RRR, no significant murmur Gastrointestinal: soft, non-tender, positive bowel sounds left upper arm with mildredness and swelling just prox to antecubital fossa Neurological: non-focal, moves all 4 limbs Psychiatric: normal affect, A&O x 3 Dx/Plan (1) Febrile neutropenia Code(s): D70.9 - NEUTROPENIA, UNSPECIFIED; R50.81 - FEVER PRESENTING WITH CONDITIONS CLASSIFIED ELSEWHERE Status: Acute Comment: Improving, continue IV antibiotics as below, blood culture neg to date, WBC improving (2) Hyponatremia Code(s): E87.1 - HYPO-OSMOLALITY AND HYPONATREMIA Status: Acute Comment: sodium improved to 134 (3) Breast cancer Status: Chronic Comment: oncology consulted (4) Superficial thrombophlebitis of arm Code(s): I80.8 - PHLEBITIS AND THROMBOPHLEBITIS OF OTHER SITES Status: Acute Qualifiers: Laterality: left Qualified Code(s): I80.8 - Phlebitis and thrombophlebitis of other sites Comment: warm compresses and NSAIDS, can go home if not DVT - Plan cont current plan of care, continue antibiotics, out of bed/ambulate, DVT proph w/SCDs Spoke with Dr. Crawford and will d/c home if no DVT. * . - Discharge Day Encounter end time: 09:50
[2018-06-27 11:21] VITALS: BP 138/83
--- NOTE | 2018-06-27 12:24 | ULT ---
LEFT UPPER EXTREMITY VENOUS DOPPLER ULTRASOUND WITH GRAYSCALE, DOPPLER COLORFLOW IMAGING, AND SPECTRA L ANALYSIS: INDICATIONS: Left upper extremity pain with edema and erythema within the superficial venous system, involving the cephalic vein. Otherwise, there is no DVT of the imaged left upper extremity. IMPRESSION: 1. Cephalic vein thrombosis. 2. No deep venous thrombosis of the left upper extremity otherwise depicted. POS: [facility]
[2018-06-27] MEDS: Ibuprofen 600 MG TAB PO PRN (13:38)
--- NOTE | 2018-06-27 14:09 | DIS ---
DATE OF ADMISSION: 06/25/2018 DATE OF DISCHARGE: 06/27/2018 PRIMARY CARE PHYSICIAN: Tiffanie Villasenor MD PROCEDURES: Vascular ultrasound of left upper extremity showing a superficial cephalic vein thrombosis. No DVT. CONSULTATIONS: Oncology, Dr. Rahman, for Dr. Crawford. SUMMARY OF HOSPITAL COURSE: This is a 62-year-old female with a recurrence of breast cancer, who is status post mastectomy and then started on chemotherapy. She presented to the emergency room with a temperature of 102.5 and also had some diarrhea that has since resolved. The patient was noted to have neutropenia in the emergency room. White blood cell count 1.6, 8% neutrophils. She was started on vancomycin and cefepime. She is also noted to have mild hyponatremia. The patient was afebrile during her hospital stay. She started to feel much better. After admission, blood cultures came back negative. The patient did develop a superficial thrombophlebitis in the left antecubital fossa from an IV that was discontinued. Ultrasound did confirm that it was just in the cephalic vein and there was no DVT. This was treated with warm compresses. Dr. Rahamn was consulted for Dr. Crawford for Heme/Oncology. The patient's white blood cell count improved during hospitalization up to 3.7 with 36% neutrophils on the day of discharge. She was doing well without any further fever and was cleared for discharge by Dr. Crawford. She is to follow up with him as an outpatient. DISCHARGE MANAGEMENT: Discharged home. FOLLOWUP: Followup with Dr. Crawford as previously scheduled on July 07, 2018. ACTIVITY: As tolerated. DIET: Regular diet. THERAPY: The patient is to use warm compresses and NSAIDs as needed for the superficial vein thrombosis of the left arm. DISCHARGE MEDICATIONS: 1. Levofloxacin 750 mg daily for 5 more days for a total of 7 days of antibiotics. 2. Continue calcium citrate vitamin D caplet, one caplet daily. 3. Vitamin D3 of 2000 units daily. 4. Stool softener, docusate sodium 100 mg daily. 5. Fexofenadine 180 mg daily. 6. Gabapentin 600 mg at night. 7. [place] 5/325 mg 1 to 2 tablets as needed for pain. 8. Singulair 10 mg at night. 9. Multivitamin daily. 10. Zofran as needed. 11. Acetaminophen as needed. 12. Cranberry tablet one daily. 13. Ibuprofen as needed for pain. 14. Naproxen 440 mg twice a day as needed for pain. 15. Ranitidine 150 mg at night. Job ID: [id number]
== END 2018-06-27 14:56 | disposition home or self-care (01) | DRG 809 ==
LOC: ERS 17:47 → ONC 06-25 00:15
PROVIDERS: ADMIT Family Medicine; ATTEND Family Medicine
DX: D70.9 Neutropenia, unspecified (principal); E87.1 Hypo-osmolality and hyponatremia; R50.81 Fever presenting with conditions classified elsewhere; G25.81 Restless legs syndrome; I80.8 Phlebitis and thrombophlebitis of other sites; Z79.899 Other long term (current) drug therapy; Z85.3 Personal history of malignant neoplasm of breast; Z92.21 Personal history of antineoplastic chemotherapy; Z90.10 Acquired absence of unspecified breast and nipple; Z92.3 Personal history of irradiation
CPT/HCPCS: 36415; 71045; 80048; 80202; 81003; 81015; 83605; 85025; 87040; 87804; 96365; 96375; J0692; J3370; J7050

== ENCOUNTER 2018-10-10 14:27 | Outpatient (CLI) | payer OTHER | END 2018-10-10 14:28 | disposition home or self-care (01) | LOC: ULT 14:27 | PROVIDERS: ATTEND Internal Medicine Hematology & Oncology | DX: Z51.11 Encounter for antineoplastic chemotherapy (principal); C50.919 Malignant neoplasm of unspecified site of unspecified female breast; I08.1 Rheumatic disorders of both mitral and tricuspid valves; Z79.899 Other long term (current) drug therapy | CPT/HCPCS: 93306 ==

== ENCOUNTER 2018-12-14 08:55 | Outpatient (CLI) | payer OTHER ==
--- NOTE | 2018-12-14 10:59 | BD ---
BONE DENSITOMETRY USING DEXA: Date: 12/14/18 HISTORY: Postmenopausal screening for osteoporosis. FINDINGS: Lumbar Spine: BMD (g/cm2) L1 1.246 T-Score: 2.3 Z-Score: 3.6 L2 1.289 T-Score: 2.4 Z-Score: 3.8 L3 1.260 T-Score: 1.6 Z-Score: 3.1 L4 1.281 T-Score: 2.0 Z-Score: 3.6 L1-L4 1.269 T-Score: 2.0 Z-Score: 3.5 Femoral Neck: 0.869 T-Score: 0.2 Z-Score: 1.5 Total Femur: 1.123 T-Score: 1.5 Z-Score: 2.5 IMPRESSION: Normal bone mineral density. No evidence of osteopenia/osteoporosis. POS: [facility]
== END 2018-12-14 08:56 | disposition home or self-care (01) ==
LOC: BICMAMMO 08:55
PROVIDERS: ATTEND Internal Medicine Hematology & Oncology
DX: Z13.820 Encounter for screening for osteoporosis (principal); C50.111 Malignant neoplasm of central portion of right female breast
CPT/HCPCS: 77080

== ENCOUNTER 2019-01-10 12:41 | Outpatient (CLI) | payer OTHER | END 2019-01-10 12:42 | disposition home or self-care (01) | LOC: ULT 12:41 | PROVIDERS: ATTEND Internal Medicine Hematology & Oncology | DX: Z51.11 Encounter for antineoplastic chemotherapy (principal); C50.111 Malignant neoplasm of central portion of right female breast; I08.1 Rheumatic disorders of both mitral and tricuspid valves; Z79.899 Other long term (current) drug therapy | CPT/HCPCS: 93306 ==

== ENCOUNTER 2019-01-31 13:08 | Outpatient (CLI) | payer OTHER | END 2019-01-31 13:09 | disposition home or self-care (01) | LOC: ULT 13:08 | PROVIDERS: ATTEND Internal Medicine Hematology & Oncology | DX: Z51.11 Encounter for antineoplastic chemotherapy (principal); C50.919 Malignant neoplasm of unspecified site of unspecified female breast; I08.1 Rheumatic disorders of both mitral and tricuspid valves; Z79.899 Other long term (current) drug therapy | CPT/HCPCS: 93306 ==

== ENCOUNTER 2019-03-20 08:54 | Outpatient (CLI) | payer OTHER ==
--- NOTE | 2019-03-20 09:43 | MMO ---
Left Breast MAMMO Unilat Diag DDI LT+FAHAD. CLINICAL HISTORY: Patient is 63 years old and is seen for diagnostic exam. The patient has no family history of breast cancer. The patient has a history of right Mastectomy in 2019 - malignant, right Ultrasound Guided Core Biopsy in March, - malignant and right Excisional Biopsy at age 52 - malignant. VIEWS: The views performed were: left craniocaudal with tomosynthesis; left mediolateral oblique with tomosynthesis; and left mediolateral with tomosynthesis. FILMS COMPARED: The present examination has been compared to prior imaging studies performed at [facility] on 03/14/2018 and 04/04/2018, and at [facility] [place] on 02/27/2016 and 03/01/2017. This study has been interpreted with the assistance of computer-aided detection. MAMMOGRAM FINDINGS: There are scattered fibroglandular densities. There are no suspicious masses, suspicious calcifications, or new areas of architectural distortion. IMPRESSION: THERE IS NO MAMMOGRAPHIC EVIDENCE OF MALIGNANCY. A ROUTINE FOLLOW-UP MAMMOGRAM IN 1 YEAR IS RECOMMENDED. THE RESULTS OF THIS EXAM WERE SENT TO THE PATIENT. ACR BI-RADS Category 1 - Negative MAMMOGRAPHY NOTE: 1. A negative mammogram report should not delay a biopsy if a dominant of clinically suspicious mass is present. 2. Approximately 10% to 15% of breast cancers are not detected by mammography. 3. Adenosis and dense breasts may obscure an underlying neoplasm. Reported by: VIVIANA PARSONS MD Electonically Signed: [id number]
== END 2019-03-20 08:55 | disposition home or self-care (01) ==
LOC: BICMAMMO 08:54
PROVIDERS: ATTEND Internal Medicine Hematology & Oncology
DX: C50.111 Malignant neoplasm of central portion of right female breast (principal)
CPT/HCPCS: G0279

== ENCOUNTER 2019-05-09 12:44 | Outpatient (CLI) | payer OTHER | END 2019-05-09 12:45 | disposition home or self-care (01) | LOC: ULT 12:44 | PROVIDERS: ATTEND Internal Medicine Hematology & Oncology | DX: Z51.11 Encounter for antineoplastic chemotherapy (principal); C50.111 Malignant neoplasm of central portion of right female breast; I07.1 Rheumatic tricuspid insufficiency; Z79.899 Other long term (current) drug therapy | CPT/HCPCS: 93306 ==

== ENCOUNTER 2019-05-22 15:15 | Outpatient (CLI) | payer OTHER ==
[2019-05-22 16:23] LABS: #Basophils 0.1 thou/uL (0.0-0.2); #Eosinphils 0.2 thou/uL (0.0-0.7); #Lymphocytes 2.6 thou/uL (1.20-3.40); #Monocytes 0.5 thou/uL (0.11-0.59); #Neutrophils 2.5 thou/uL (1.40-6.50); %Basophils 1.3 % (0.0-1.0); %Eosinophils 2.7 % (0.0-10.0); %Lymphocytes 44.9 % (21.0-51.0); %Monocytes 8.8 % (0.0-10.0); %Neutrophils 42.3 % (42.0-75.0); Hemoglobin 13.3 g/dL (12.0-16.0); Mean Corpuscular HGB CONC 33.7 g/dL (32.0-36.0); Mean Corpuscular Hemoglobin 28.4 pg (27.0-31.0); Mean Corpuscular Volume 84.3 fL (78.0-98.0); Mean Platelet Volume 8.5 fL (7.4-10.4); Platelet Count 135 thou/uL (130-400); RBC Distribution Width 12.1 % (11.5-14.5); Red Blood Cell (RBC) Count 4.66 mill/uL (4.20-5.40); White Blood Cell (WBC) Count 5.9 thou/uL (4.8-10.8)
== END 2019-05-22 15:16 | disposition home or self-care (01) ==
LOC: LABBT 15:15
PROVIDERS: ATTEND Internal Medicine
DX: Z01.818 Encounter for other preprocedural examination (principal); Z85.3 Personal history of malignant neoplasm of breast; Z92.21 Personal history of antineoplastic chemotherapy
CPT/HCPCS: 85025; 93005; 93010

== ENCOUNTER 2019-05-26 05:46 | Day surgery (SDC) | payer OTHER ==
[2019-05-22 14:47] VITALS: BMI 36.1
[2019-05-26] MEDS ORDERED: Propofol 500 MG/50 ML VIAL ONE (06:39)
[2019-05-26] MEDS ORDERED: Midazolam HCl 2 mg/2 ml Vial ONE (06:39)
[2019-05-26] MEDS ORDERED: Fentanyl 100 MCG/2 ML VIAL ONE (06:39)
[2019-05-26] MEDS ORDERED: Bupivacaine PF 0.5% 30 ML VIAL ONE (06:46)
[2019-05-26] MEDS ORDERED: Lidocaine 1% w/Epinephrine 1:100K 20 ML VIAL ONE (06:46)
--- NOTE | 2019-05-26 10:09 | OP ---
DATE OF PROCEDURE: 05/26/2019 PREOPERATIVE DIAGNOSIS: Completed chemo. PROCEDURE PERFORMED: Removal of MediPort. INDICATIONS: This is a 63-year-old female who has breast cancer, has completed her chemo, no longer needs her MediPort. FINDINGS: Intact system. DESCRIPTION OF PROCEDURE: After informed consent was obtained, patient was taken to the operating room, given total IV anesthesia, placed in supine position. Her chest was prepped and draped in usual fashion. Local anesthesia infiltrated subcutaneously and deep. A transverse incision was performed through the old scar. Subcu divided sharply. The capsule was incised. The MediPort was excised. The sutures removed. The catheter removed. Hemostasis was assured. The subcu reapproximated with interrupted 3-0 Vicryl, skin closed with a running subcuticular 4-0 Rapide, Steri-Strips applied, sterile bandage applied. The patient tolerated the procedure well, transferred to Recovery in good condition. Sponge and needle count verified and correct x2. Job ID: [id number]
== END 2019-05-26 08:50 | disposition home or self-care (01) ==
LOC: SDC 05:46
PROVIDERS: ATTEND Surgery
PROC: 02PY33Z Removal of Infusion Device from Great Vessel, Percutaneous Approach (ICD-10-PCS; principal; 2019-05-26)
DX: Z45.2 Encounter for adjustment and management of vascular access device (principal); Z85.3 Personal history of malignant neoplasm of breast; Z79.899 Other long term (current) drug therapy
CPT/HCPCS: J0690; J2250; J2704; J3010; S0020

== ENCOUNTER 2019-10-03 09:38 | Outpatient (CLI) | payer OTHER ==
--- NOTE | 2019-10-03 10:15 | ULT ---
US Abdominal: 10/03/2019 12:00 AM CLINICAL HISTORY: Abnormal LFTs. STUDY: Complete abdominal ultrasound COMPARISON: None. FINDINGS: Liver: Size: Normal. Echogenicity: Hyperechoic consistent with hepatic steatosis. Contour: Smooth. Mass: None. Common bile duct: 5 mm Gallbladder: Cholelithiasis. Pancreas: Head, body, and tail appear normal. Inferior vena cava: Normal in caliber Aorta: Normal in caliber Spleen: No focal lesions. Spleen measuring 10.9 cm in length. Right kidney: No pelvicalyceal dilatation. Right kidney measuring 10.5 cm in length. Left kidney: No pelvicalyceal dilatation. Left kidney measuring 10.5 cm in length. IMPRESSION: 1. Cholelithiasis 2. Fatty liver
== END 2019-10-03 09:39 | disposition home or self-care (01) ==
LOC: ULT 09:38
PROVIDERS: ATTEND Internal Medicine Hematology & Oncology
DX: R94.5 Abnormal results of liver function studies (principal); K80.20 Calculus of gallbladder without cholecystitis without obstruction; K76.0 Fatty (change of) liver, not elsewhere classified
CPT/HCPCS: 93975

== ENCOUNTER 2020-03-27 08:07 | Outpatient (CLI) | payer OTHER ==
--- NOTE | 2020-03-27 11:10 | MMO ---
Left Breast MAMMO Unilat Diag DDI LT+FAHAD. CLINICAL HISTORY: Patient is 64 years old and is seen for diagnostic exam. The patient has no family history of breast cancer. The patient has a history of right Mastectomy in 2019 - malignant, right Ultrasound Guided Core Biopsy in March, - malignant and right Excisional Biopsy at age 52 - malignant. VIEWS: The views performed were: left craniocaudal with tomosynthesis; left mediolateral oblique with tomosynthesis; and left mediolateral with tomosynthesis. FILMS COMPARED: The present examination has been compared to prior imaging studies performed at [facility] on 03/14/2018, 04/04/2018 and 03/20/2019, and at [facility] [place] on 03/01/2017. This study has been interpreted with the assistance of computer-aided detection. MAMMOGRAM FINDINGS: There are scattered fibroglandular densities. There are benign appearing calcifications in the left breast. There are no suspicious masses, suspicious calcifications, or new areas of architectural distortion. IMPRESSION: THERE IS NO MAMMOGRAPHIC EVIDENCE OF MALIGNANCY. A ROUTINE FOLLOW-UP MAMMOGRAM IN 1 YEAR IS RECOMMENDED. THE RESULTS OF THIS EXAM WERE SENT TO THE PATIENT. ACR BI-RADS Category 2 - Benign finding MAMMOGRAPHY NOTE: 1. A negative mammogram report should not delay a biopsy if a dominant of clinically suspicious mass is present. 2. Approximately 10% to 15% of breast cancers are not detected by mammography. 3. Adenosis and dense breasts may obscure an underlying neoplasm. Reported by: EDWARD SRIVASTAVA MD Electonically Signed: [id number]
== END 2020-03-27 08:08 | disposition home or self-care (01) ==
LOC: BICMAMMO 08:07
PROVIDERS: ATTEND Internal Medicine Hematology & Oncology
DX: Z08 Encounter for follow-up examination after completed treatment for malignant neoplasm (principal); Z85.3 Personal history of malignant neoplasm of breast
CPT/HCPCS: G0279

== ENCOUNTER 2020-08-07 09:29 | Outpatient (CLI) | payer OTHER | END 2020-08-07 09:30 | disposition home or self-care (01) | LOC: BICRAD 09:29 | PROVIDERS: ATTEND Internal Medicine Hematology & Oncology | DX: M25.552 Pain in left hip (principal); M53.3 Sacrococcygeal disorders, not elsewhere classified; C50.111 Malignant neoplasm of central portion of right female breast; M16.12 Unilateral primary osteoarthritis, left hip | CPT/HCPCS: 72220 ==

== ENCOUNTER 2020-10-10 13:17 | Outpatient (CLI) | payer OTHER ==
[2020-10-10 15:07] LABS: #Eosinphils 0.1 10x3/uL (0.0-0.5); #Monocytes 0.5 10x3/uL (0.0-1.1); #Neutrophils 3.6 10x3/uL (1.5-8.4); %Basophils 0.6 % (0.0-2.0); %Eosinophils 1.3 % (0.0-6.0); %Lymphocytes 40.7 % (18.0-47.0); %Monocytes 6.8 % (0.0-10.0); %Neutrophils 50.3 % (40.0-75.0); Hemoglobin 13.3 g/dL (12.0-15.5); Mean Corpuscular HGB CONC 34.1 g/dL (32.0-36.0); Mean Corpuscular Hemoglobin 29.2 pg (27.0-33.0); Mean Corpuscular Volume 85.5 fl (81.6-98.3); Mean Platelet Volume 10.7 fl (7.4-10.4); Platelet Count 193 10x3/uL (150-450); RBC Distribution Width 13.3 % (11.5-14.5); Red Blood Cell (RBC) Count 4.56 10x6/uL (3.90-5.03); White Blood Cell (WBC) Count 7.1 10x3/uL (3.5-10.5)
[2020-10-10 15:11] LABS: ALT (SGPT) 47 U/L (8-55); AST (SGOT) 26 U/L (5-34); Albumin 4.1 g/dL (3.4-4.8); Alkaline Phosphatase 88 U/L (40-110); Bilirubin, Direct 0.2 mg/dL (0.1-0.3); Bilirubin, Total 0.4 mg/dL (0.2-1.2); Protein, Total 6.7 g/dL (5.8-8.1)
== END 2020-10-10 13:18 | disposition home or self-care (01) ==
LOC: LABBT 13:17
PROVIDERS: ATTEND Orthopaedic Surgery Hand Surgery
DX: Z01.818 Encounter for other preprocedural examination (principal); M65.4 Radial styloid tenosynovitis [de Quervain]
CPT/HCPCS: 80076; 85025; 93005; 93010

== ENCOUNTER 2020-10-14 11:16 | Day surgery (SDC) | payer OTHER ==
[2020-10-11 10:56] VITALS: BMI 31.6
[2020-10-14] MEDS ORDERED: Fentanyl 100 MCG/2 ML VIAL ONE ×3 (14:21→14:56)
[2020-10-14] MEDS ORDERED: Midazolam HCl 2 mg/2 ml Vial ONE (14:54)
[2020-10-14] MEDS ORDERED: Betamet Acet/Betamet Na Ph 30 MG/5 ML VIAL ONE (15:04)
[2020-10-14] MEDS ORDERED: Bupivacaine PF 0.5% 30 ML VIAL ONE (15:04)
[2020-10-14] MEDS ORDERED: Neomycin-Polymyxin 1 ML AMP ONE (15:04)
[2020-10-14] MEDS ORDERED: Bacitracin Zinc Ointment 30 gm TUBE ONE (15:04)
[2020-10-14] MEDS ORDERED: Ketorolac Tromethamine 30 MG/ML VIAL ONE (15:43)
[2020-10-14] MEDS ORDERED: Dexamethasone 20 MG/5 ML VIAL ONE (15:43)
[2020-10-14] MEDS ORDERED: Ondansetron PF 4 MG/2 ML Vial ONE (15:43)
[2020-10-14] MEDS ORDERED: Lidocaine 1% PF 5 ML VIAL ONE (15:43)
[2020-10-14] MEDS ORDERED: PROPOFOL 200 MG/20 ML VIAL ONE (15:43)
== END 2020-10-14 18:13 | disposition home or self-care (01) ==
LOC: SDC 11:16
PROVIDERS: ATTEND Orthopaedic Surgery Hand Surgery
PROC: 0LB60ZZ Excision of Left Lower Arm and Wrist Tendon, Open Approach (ICD-10-PCS; principal; 2020-10-14)
PROC: 0LN60ZZ Release Left Lower Arm and Wrist Tendon, Open Approach (ICD-10-PCS; principal; 2020-10-14)
DX: M67.432 Ganglion, left wrist (principal); M65.4 Radial styloid tenosynovitis [de Quervain]; G25.81 Restless legs syndrome; Z85.3 Personal history of malignant neoplasm of breast; Z79.811 Long term (current) use of aromatase inhibitors; Z79.84 Long term (current) use of oral hypoglycemic drugs; Z79.899 Other long term (current) drug therapy; Z91.040 Latex allergy status
CPT/HCPCS: 88304; 88342; J0690; J0702; J1100; J1885; J2250; J2405; J2704; J3010; S0020

== ENCOUNTER 2021-04-23 08:56 | Outpatient (CLI) | payer OTHER | END 2021-04-23 08:57 | disposition home or self-care (01) | LOC: BICMAMMO 08:56 | PROVIDERS: ATTEND Internal Medicine Hematology & Oncology | DX: Z08 Encounter for follow-up examination after completed treatment for malignant neoplasm (principal); Z13.820 Encounter for screening for osteoporosis; Z85.3 Personal history of malignant neoplasm of breast; Z78.0 Asymptomatic menopausal state; Z90.11 Acquired absence of right breast and nipple | CPT/HCPCS: 77080; G0279 ==

== ENCOUNTER 2022-04-27 08:14 | Outpatient (CLI) | payer OTHER | END 2022-04-27 08:15 | disposition home or self-care (01) | LOC: BICMAMMO 08:14 | PROVIDERS: ATTEND Internal Medicine Hematology & Oncology | DX: Z08 Encounter for follow-up examination after completed treatment for malignant neoplasm (principal); Z13.820 Encounter for screening for osteoporosis; Z85.3 Personal history of malignant neoplasm of breast; T38.6X5A Adverse effect of antigonadotrophins, antiestrogens, antiandrogens, not elsewhere classified, initial encounter | CPT/HCPCS: 77080; G0279 ==

== ENCOUNTER 2023-05-11 09:20 | Outpatient (CLI) | payer MEDICARE, OTHER | END 2023-05-11 09:21 | disposition home or self-care (01) | LOC: BICMAMMO 09:20 | PROVIDERS: ATTEND Internal Medicine Hematology & Oncology | DX: Z08 Encounter for follow-up examination after completed treatment for malignant neoplasm (principal); Z13.820 Encounter for screening for osteoporosis; Z85.3 Personal history of malignant neoplasm of breast | CPT/HCPCS: 77065; 77080; G0279 ==

== ENCOUNTER 2024-05-16 08:16 | Outpatient (CLI) | payer MEDICARE, OTHER | END 2024-05-16 08:17 | disposition home or self-care (01) | LOC: BICMAMMO 08:16 | PROVIDERS: ATTEND Internal Medicine Hematology & Oncology | DX: Z12.31 Encounter for screening mammogram for malignant neoplasm of breast (principal); M85.89 Other specified disorders of bone density and structure, multiple sites; Z90.11 Acquired absence of right breast and nipple; Z86.000 Personal history of in-situ neoplasm of breast; Z98.890 Other specified postprocedural states | CPT/HCPCS: 77063; 77067; 77080 ==